=== PATIENT | male | born 1975 | race Caucasian/White ===

== ENCOUNTER 2016-06-04 17:50 | Emergency (ER) | payer SELFPAY | END 2016-06-04 17:58 | disposition left against medical advice (07) | LOC: ED 17:50 | DX: T40.691A Poisoning by other narcotics, accidental (unintentional), initial encounter (principal); F11.23 Opioid dependence with withdrawal; Z53.29 Procedure and treatment not carried out because of patient's decision for other reasons | CPT/HCPCS: J2310 ==